=== PATIENT | male | born 1985 | race Caucasian/White ===

== ENCOUNTER 2020-09-16 03:46 | Observation (INO) | payer OTHER ==
[2020-09-16] MEDS ORDERED: methylPREDNISolone NA SUCC 125 MG/2 ML VIAL ONE (04:12)
[2020-09-16] MEDS ORDERED: FAMOTIDINE 20 MG/50 ML IVPB 20 MG/50 ML MG IVPB ONE ×2 (04:12→04:28)
[2020-09-16] MEDS ORDERED: EPINEPHrine/PF 1 MG/1 ML (1:1,000) AMPULE ONE (04:14)
[2020-09-16] MEDS ORDERED: EPINEPHrine 1:1,000 1 MG/1 ML - 30ML VIAL (INJECTION) SQ ONE (04:15)
[2020-09-16 04:28] VITALS: TEMP 98.1; BMI 36.6
[2020-09-16] MEDS ORDERED: methylPREDNISolone NA SUCC 125 MG/2 ML VIAL IVPB ONE (04:28)
[2020-09-16] MEDS ORDERED: RACEPINEPHRINE IH SOL 2.25% 11.25 MG/0.5 ML VIAL IH ONE (08:00)
[2020-09-16] MEDS ORDERED: RACEPINEPHRINE IH SOL 2.25% 11.25 MG/0.5 ML VIAL NEB ONE (08:05)
[2020-09-16 12:08] LABS: BASO % 0.5 % (0-2.0); EOS % 0.1 % (0-4.5); HEMATOCRIT 48.8 % (35.4-49); HEMOGLOBIN 16.5 GM/dL (11.7-16.9); LYMPH % 18.1 % (8-40); MCH 29.7 pg (25.7-33.7); MCHC 33.8 g/dl (32.0-35.9); MONO % 0.9 % (3.8-10.2); NEUT % 80.4 % (42.8-82.8); PLATELET COUNT 278 K/MM3 (134-434); RBC 5.55 M/mm3 (4.00-5.60); RDW 14.1 % (11.9-15.9); WHITE BLOOD COUNT 5.7 K/mm3 (4.0-10.0)
[2020-09-16 12:44] LABS: BLOOD UREA NITROGEN 15.6 mg/dL (7-18); CALCIUM 9.1 mg/dL (8.5-10.1)
[2020-09-16 12:45] LABS: ALBUMIN 3.8 g/dl (3.4-5.0)
[2020-09-16 12:50] LABS: BILIRUBIN,TOTAL 0.5 mg/dL (0.2-1); TOT PROT 7.6 g/dl (6.4-8.2)
[2020-09-16] MEDS ORDERED: diphenhydrAMINE HCL 25 MG CAPSULE (FP) PO PRN (14:44)
[2020-09-16 19:14] VITALS: BP 134/77; PULSE 104
[2020-09-17] MEDS ORDERED: ENOXAPARIN NA (PORCINE) 40 MG/0.4 ML DISP.SYRIN SQ SCH (10:00)
[2020-09-17] MEDS ORDERED: predniSONE 20 MG TABLET (UD) PO SCH (10:00)
== END 2020-09-16 20:19 | disposition home or self-care (01) ==
LOC: JER 03:46 → JERBED 13:32
PROVIDERS: ADMIT Student in an Organized Health Care Education/Training Program; ATTEND Student in an Organized Health Care Education/Training Program
PROC: 3E023GC Introduction of Other Therapeutic Substance into Muscle, Percutaneous Approach (ICD-10-PCS; principal; 2020-09-16)
DX: T78.40XA Allergy, unspecified, initial encounter (principal); R22.0 Localized swelling, mass and lump, head; L40.9 Psoriasis, unspecified; E66.9 Obesity, unspecified; Z68.36 Body mass index [BMI] 36.0-36.9, adult; Z29.9 Encounter for prophylactic measures, unspecified
CPT/HCPCS: 36415; 71046-TC-FY; 80053; 85025; 93005; 93010; 96365; 96372; 96375; 99285-25; C9803; G0378; U0003; U0005

== ENCOUNTER 2021-11-14 08:32 | Emergency (ER) | payer OTHER ==
[2021-11-14 08:38] VITALS: BP 118/80; PULSE 101; TEMP 98.2; BMI 36.6
[2021-11-14] MEDS ORDERED: ACETAMINOPHEN 500 MG TABLET (FP) PO ONE (09:22)
[2021-11-14] MEDS ORDERED: ACETAMINOPHEN 500 MG TABLET (FP) ONE (09:25)
[2021-11-14] MEDS ORDERED: oxyCODONE HCL 5 MG TABLET PO ONE (09:26)
[2021-11-14] MEDS ORDERED: oxyCODONE HCL 5 MG TABLET ONE (09:28)
== END 2021-11-14 10:19 | disposition home or self-care (01) ==
LOC: JER 08:32 → JERFT 08:32
DX: M25.562 Pain in left knee (principal)
CPT/HCPCS: 73560-TC-LT-FY; 99283-25

== ENCOUNTER 2022-06-02 14:49 | Observation (INO) | payer OTHER ==
[2022-06-02] MEDS ORDERED: morphine CARPU-JECT 4 MG/1 ML DISP.SYRIN IVPUSH ONE ×2 (16:06→20:57)
[2022-06-02] MEDS ORDERED: SODIUM CHLORIDE 0.9% 500 ML INFUS.BAG IV ONE (16:06)
[2022-06-02] MEDS ORDERED: morphine SULFATE 4 MG/ML VIAL ONE ×2 (16:32→21:36)
[2022-06-02 17:59] LABS: EPI CELLS 4 /uL (0-25.1); HYALINE CASTS 0 /uL (0-3.1); PH,URINE 5.5 (5.0-8.0); URINE APPEARANCE CLOUDY; URINE BACTERIA 12 /uL (0-1359); URINE BILIRUBIN NEGATIVE (NEGATIVE); URINE COLOR YELLOW; URINE GLUCOSE (UA) NEGATIVE (NEGATIVE); URINE KETONE NEGATIVE (NEGATIVE); URINE LEUK ESTERASE NEGATIVE (NEGATIVE); URINE NITRITE NEGATIVE (NEGATIVE); URINE PROTEIN TRACE (NEGATIVE); URINE RBC 1106 /uL (0-23.9); URINE UROBILINOGEN 0.2 mg/dL (0.2-1.0); URINE WBC 16 /uL (0-25.8)
[2022-06-02 18:10] LABS: BASO % 0.3 % (0-2.0); EOS % 2.8 % (0-4.5); HEMATOCRIT 55.5 % (35.4-49); HEMOGLOBIN 18.4 GM/dL (11.7-16.9); LYMPH % 25.2 % (8-40); MCHC 33.1 g/dl (32.0-35.9); MEAN CELL VOLUME 87.7 fl (80-96); MEAN PLT VOLUME 8.2 fl (7.5-11.1); MONO % 14.1 % (3.8-10.2); NEUT % 57.6 % (42.8-82.8); PLATELET COUNT 320 10^3/uL (134-434); RBC 6.33 M/mm3 (4.00-5.60); RDW 14.2 % (11.9-15.9)
[2022-06-02 18:14] LABS: CALCIUM 9.6 mg/dL (8.5-10.1)
[2022-06-02 18:15] LABS: ALBUMIN 4.3 g/dl (3.4-5.0); BLOOD UREA NITROGEN 15.1 mg/dL (7-18)
[2022-06-02 18:18] LABS: CREATININE 1.3 mg/dL (0.55-1.3)
[2022-06-02] MEDS ORDERED: morphine CARPU-JECT 2 MG/1 ML DISP.SYRIN IVPUSH ONE (18:19)
[2022-06-02 18:20] LABS: BILIRUBIN,TOTAL 0.7 mg/dL (0.2-1); TOT PROT 8.2 g/dl (6.4-8.2)
[2022-06-02] MEDS ORDERED: ACETAMINOPHEN 1000 MG/100 ML BAG IVPB ONE (18:26)
[2022-06-02] MEDS ORDERED: ACETAMINOPHEN INJECTION 100 ML IVPB ONE (18:35)
[2022-06-02] MEDS ORDERED: TAMSULOSIN HCL 0.4 MG CAP PO ONE (20:49)
[2022-06-02] MEDS ORDERED: morphine SULFATE 4 MG/ML VIAL IVPUSH PRN (21:30)
[2022-06-02] MEDS ORDERED: TAMSULOSIN HCL 0.4 MG CAP ONE (21:36)
[2022-06-02] MEDS: SODIUM CHLORIDE 1,000 ML IV SCH (22:51)
[2022-06-02 23:12] LABS: INR 1.05 (0.83-1.09); PROTHROMBIN TIME (PATIENT) 12.1 SEC (9.7-13.0)
[2022-06-02 23:15] LABS: ACTIVATED PTT 28.2 SECONDS (25.2-36.5)
[2022-06-02 23:39] LABS: ALBUMIN 3.8 g/dl (3.4-5.0)
[2022-06-02 23:40] LABS: BLOOD UREA NITROGEN 13.1 mg/dL (7-18)
[2022-06-02 23:43] LABS: CREATININE 1.1 mg/dL (0.55-1.3)
[2022-06-02 23:44] LABS: BILIRUBIN,TOTAL 0.7 mg/dL (0.2-1); TOT PROT 7.5 g/dl (6.4-8.2)
[2022-06-03] MEDS: ACETAMINOPHEN 1000 MG/100 ML BAG IVPB SCH ×2 (01:34→06:13)
[2022-06-03] MEDS ORDERED: ACETAMINOPHEN INJECTION 100 ML IVPB ONE ×2 (01:40→06:39)
[2022-06-03] MEDS ORDERED: TAMSULOSIN HCL 0.4 MG CAP ONE (07:24)
[2022-06-03] MEDS ORDERED: ACETAMINOPHEN 325 MG TABLET (FP) PO PRN ×2 (07:26→08:00)
[2022-06-03] MEDS ORDERED: KETOROLAC TROMETHAMINE 15 MG/ML VIAL IVPUSH PRN (07:27)
[2022-06-03] MEDS: TAMSULOSIN HCL 0.4 MG CAP PO SCH (07:36)
[2022-06-03 08:22] LABS: BASO % 0.5 % (0-2.0); EOS % 3.2 % (0-4.5); HEMATOCRIT 49.3 % (35.4-49); HEMOGLOBIN 16.2 GM/dL (11.7-16.9); LYMPH % 32.7 % (8-40); MCH 28.8 pg (25.7-33.7); MCHC 32.8 g/dl (32.0-35.9); MEAN CELL VOLUME 87.6 fl (80-96); MEAN PLT VOLUME 7.9 fl (7.5-11.1); NEUT % 51.6 % (42.8-82.8); PLATELET COUNT 273 10^3/uL (134-434); RBC 5.62 M/mm3 (4.00-5.60); RDW 13.9 % (11.9-15.9); WHITE BLOOD COUNT 6.3 K/mm3 (4.0-10.0)
[2022-06-03 08:55] LABS: ALBUMIN 3.4 g/dl (3.4-5.0); CALCIUM 8.9 mg/dL (8.5-10.1); MAGNESIUM 2.2 mg/dL (1.8-2.4)
[2022-06-03 08:56] LABS: BLOOD UREA NITROGEN 12.3 mg/dL (7-18)
[2022-06-03 08:58] LABS: CREATININE 1.1 mg/dL (0.55-1.3)
[2022-06-03 09:00] LABS: BILIRUBIN,TOTAL 0.8 mg/dL (0.2-1); TOT PROT 6.8 g/dl (6.4-8.2)
[2022-06-03] MEDS ORDERED: ENOXAPARIN NA (PORCINE) 40 MG/0.4 ML DISP.SYRIN SQ SCH (10:00)
[2022-06-03] MEDS: SODIUM CHLORIDE 1,000 ML IV SCH (11:25)
[2022-06-03 16:07] VITALS: BMI 37.3
[2022-06-03 22:03] VITALS: RESP 20
[2022-06-04] MEDS: TAMSULOSIN HCL 0.4 MG CAP PO SCH (09:30)
[2022-06-04] MEDS ORDERED: CEFUROXIME AXETIL 500 MG TABLET PO SCH (12:00)
[2022-06-04 14:52] VITALS: BP 126/73; PULSE 89; TEMP 98.2
[2022-06-04] MEDS ORDERED: AMOX TR/POT CLAV 500MG/125MG TABLETS (FP) PO SCH (17:30)
== END 2022-06-04 15:58 | disposition home or self-care (01) ==
LOC: JER 14:49 → JERBED 19:16 → J8W 06-03 08:53
PROVIDERS: ADMIT Internal Medicine; ATTEND Nurse Practitioner Family
PROC: 3E033NZ Introduction of Analgesics, Hypnotics, Sedatives into Peripheral Vein, Percutaneous Approach (ICD-10-PCS; principal; 2022-06-02)
PROC: 3E0337Z Introduction of Electrolytic and Water Balance Substance into Peripheral Vein, Percutaneous Approach (ICD-10-PCS; 2022-06-02)
DX: N20.0 Calculus of kidney (principal); I10 Essential (primary) hypertension; M54.50 Low back pain, unspecified; E66.8 Other obesity; Z68.37 Body mass index [BMI] 37.0-37.9, adult; D75.1 Secondary polycythemia; G89.29 Other chronic pain; Z88.8 Allergy status to other drugs, medicaments and biological substances
CPT/HCPCS: 0241U-QW; 36415; 74176-TC; 76775-TC; 80053; 80061; 81003; 83735; 84100; 85025; 85610; 85730; 87086; 93005; 93010; 96361; 96374; 96375; 96376; 99285-25; G0378

== ENCOUNTER 2022-06-10 22:57 | Inpatient (IN) | payer OTHER ==
[2022-06-11] MEDS ORDERED: ONDANSETRON 4 MG/2 ML VIAL IVPB ONE (00:12)
[2022-06-11] MEDS ORDERED: ACETAMINOPHEN 1000 MG/100 ML BAG IVPB ONE (00:12)
[2022-06-11 00:21] LABS: EPI CELLS 1 /uL (0-25.1); HYALINE CASTS 1 /uL (0-3.1); PH,URINE 5.5 (5.0-8.0); URINE APPEARANCE CLOUDY; URINE BACTERIA 1 /uL (0-1359); URINE BILIRUBIN NEGATIVE (NEGATIVE); URINE COLOR YELLOW; URINE GLUCOSE (UA) NEGATIVE (NEGATIVE); URINE KETONE NEGATIVE (NEGATIVE); URINE LEUK ESTERASE NEGATIVE (NEGATIVE); URINE NITRITE NEGATIVE (NEGATIVE); URINE PROTEIN NEGATIVE (NEGATIVE); URINE RBC 167 /uL (0-23.9); URINE UROBILINOGEN 0.2 mg/dL (0.2-1.0); URINE WBC 16 /uL (0-25.8)
[2022-06-11] MEDS ORDERED: ACETAMINOPHEN INJECTION 100 ML IVPB ONE (00:30)
[2022-06-11] MEDS ORDERED: ONDANSETRON 4 MG/2 ML VIAL ONE (00:30)
[2022-06-11 01:08] LABS: BASO % 0.8 % (0-2.0); EOS % 1.7 % (0-4.5); HEMATOCRIT 52.8 % (35.4-49); HEMOGLOBIN 17.4 GM/dL (11.7-16.9); LYMPH % 24.6 % (8-40); MCH 28.8 pg (25.7-33.7); MCHC 32.9 g/dl (32.0-35.9); MEAN CELL VOLUME 87.5 fl (80-96); MEAN PLT VOLUME 7.7 fl (7.5-11.1); MONO % 13.1 % (3.8-10.2); NEUT % 59.8 % (42.8-82.8); PLATELET COUNT 310 10^3/uL (134-434); RBC 6.04 M/mm3 (4.00-5.60); RDW 13.8 % (11.9-15.9); WHITE BLOOD COUNT 8.3 K/mm3 (4.0-10.0)
[2022-06-11 01:13] LABS: INR 1.01 (0.83-1.09); PROTHROMBIN TIME (PATIENT) 11.6 SEC (9.7-13.0)
[2022-06-11 01:16] LABS: ACTIVATED PTT 31.1 SECONDS (25.2-36.5)
[2022-06-11 01:25] LABS: CALCIUM 9.5 mg/dL (8.5-10.1)
[2022-06-11 01:26] LABS: BLOOD UREA NITROGEN 15.8 mg/dL (7-18)
[2022-06-11 01:28] LABS: CREATININE 1.4 mg/dL (0.55-1.3)
[2022-06-11 01:29] LABS: BILIRUBIN,TOTAL 0.5 mg/dL (0.2-1); TOT PROT 7.8 g/dl (6.4-8.2)
[2022-06-11] MEDS ORDERED: SODIUM CHLORIDE 0.9% 500 ML INFUS.BAG IV ONE (01:37)
[2022-06-11 06:03] LABS: BLOOD UREA NITROGEN 16.6 mg/dL (7-18); CALCIUM 9.2 mg/dL (8.5-10.1)
[2022-06-11 06:07] LABS: CREATININE 1.5 mg/dL (0.55-1.3)
[2022-06-11] MEDS: morphine SULFATE 4 MG/ML VIAL IVPUSH ONE ×2 (06:47→06:51)
[2022-06-11] MEDS ORDERED: SODIUM CHLORIDE 1,000 ML IV STA (12:14)
[2022-06-11 12:36] VITALS: BMI 36.9
[2022-06-11] MEDS ORDERED: ACETAMINOPHEN 325 MG TABLET (FP) PO PRN (15:32)
[2022-06-11] MEDS ORDERED: ONDANSETRON 4 MG TABLET PO PRN (15:34)
[2022-06-11] MEDS: SODIUM CHLORIDE 1,000 ML IV SCH (16:12)
[2022-06-11 17:20] LABS: CALCIUM 8.9 mg/dL (8.5-10.1)
[2022-06-11 17:22] LABS: BLOOD UREA NITROGEN 16.7 mg/dL (7-18)
[2022-06-11 17:25] LABS: CREATININE 1.3 mg/dL (0.55-1.3)
[2022-06-11] MEDS: TAMSULOSIN HCL 0.4 MG CAP PO SCH (22:25)
[2022-06-12] MEDS: SODIUM CHLORIDE 1,000 ML IV SCH (00:46)
[2022-06-12] MEDS: TAMSULOSIN HCL 0.4 MG CAP PO SCH (08:50)
[2022-06-12] MEDS ORDERED: HYDROmorphone HCl 2 MG/ML VIAL IM PRN (13:45)
[2022-06-13] MEDS: TAMSULOSIN HCL 0.4 MG CAP PO SCH (08:44)
[2022-06-13 10:52] LABS: ALBUMIN 3.6 g/dl (3.4-5.0); CALCIUM 9.7 mg/dL (8.5-10.1)
[2022-06-13 10:53] LABS: BLOOD UREA NITROGEN 9.9 mg/dL (7-18); MAGNESIUM 2.2 mg/dL (1.8-2.4)
[2022-06-13 10:56] LABS: BILIRUBIN,TOTAL 0.5 mg/dL (0.2-1); TOT PROT 7.4 g/dl (6.4-8.2)
[2022-06-13] MEDS: SODIUM CHLORIDE 1,000 ML IV SCH (16:48)
[2022-06-13] MEDS ORDERED: HYDROmorphone HCl 2 MG/ML VIAL IVPUSH PRN (17:20)
[2022-06-14] MEDS: LACTATED RINGERS SOLUTION 1,000 ML/1,000 ML INFUS.BAG IV SCH ×2 (00:48→21:00)
[2022-06-14] MEDS: TAMSULOSIN HCL 0.4 MG CAP PO SCH (09:19)
[2022-06-14 09:55] LABS: BASO % 1.1 % (0-2.0); EOS % 6.5 % (0-4.5); HEMATOCRIT 48.2 % (35.4-49); HEMOGLOBIN 16.3 GM/dL (11.7-16.9); LYMPH % 44.6 % (8-40); MCH 29.6 pg (25.7-33.7); MCHC 33.8 g/dl (32.0-35.9); MEAN CELL VOLUME 87.6 fl (80-96); MEAN PLT VOLUME 7.9 fl (7.5-11.1); MONO % 11.8 % (3.8-10.2); PLATELET COUNT 300 10^3/uL (134-434); RDW 13.4 % (11.9-15.9); WHITE BLOOD COUNT 5.7 K/mm3 (4.0-10.0)
[2022-06-14 10:42] LABS: CALCIUM 9.5 mg/dL (8.5-10.1)
[2022-06-14 10:43] LABS: ALBUMIN 3.4 g/dl (3.4-5.0); BLOOD UREA NITROGEN 12.5 mg/dL (7-18); MAGNESIUM 2.2 mg/dL (1.8-2.4)
[2022-06-14] MEDS ORDERED: ONDANSETRON 4 MG/2 ML VIAL IVPUSH PRN (10:46)
[2022-06-14] MEDS ORDERED: PROMETHAZINE HCL 25 MG/1 ML VIAL IVPB PRN (10:46)
[2022-06-14] MEDS ORDERED: oxyCODONE HCL 5 MG TABLET PO PRN ×2 (10:46)
[2022-06-14 10:47] LABS: PHOSPHOROUS 4.5 mg/dL (2.5-4.9)
[2022-06-14 10:49] LABS: BILIRUBIN,TOTAL 0.4 mg/dL (0.2-1)
[2022-06-14] MEDS ORDERED: ONDANSETRON 4 MG/2 ML VIAL ONE (10:59)
[2022-06-14] MEDS ORDERED: DEXAMETHASONE SOD PHOSPHATE 4 MG/1 ML VIAL ONE (10:59)
[2022-06-14] MEDS ORDERED: LIDOCAINE HCL/PF 2% SDV 5ML VIAL ONE (10:59)
[2022-06-14] MEDS ORDERED: PROPOFOL 60 ML ONE (10:59)
[2022-06-14] MEDS ORDERED: ceFAZolin SODIUM 1 GM VIAL ONE (11:22)
[2022-06-14] MEDS ORDERED: ceFAZolin SODIUM 1 GM VIAL IVPB ONE (11:23)
[2022-06-14] MEDS ORDERED: IOHEXOL 300 MG/ML INFUS..BTL IV ONE ×2 (11:34)
[2022-06-14] MEDS: HYDROmorphone HCl 2 MG/ML VIAL IVPUSH PRN ×2 (15:05→21:01)
[2022-06-14] MEDS: LACTATED RINGERS SOLUTION 1,000 ML IV SCH (15:16)
[2022-06-14] MEDS: CEPHALEXIN MONOHYDRATE 500 MG CAPSULE (UD) PO SCH (21:06)
[2022-06-15] MEDS: HYDROmorphone HCl 2 MG/ML VIAL IVPUSH PRN (05:16)
[2022-06-15] MEDS: LACTATED RINGERS SOLUTION 1,000 ML IV SCH ×2 (05:22→13:39)
[2022-06-15] MEDS: CEPHALEXIN MONOHYDRATE 500 MG CAPSULE (UD) PO SCH ×2 (05:22→13:39)
[2022-06-15] MEDS ORDERED: HYDROmorphone HCl 2 MG/ML VIAL IVPB PRN (07:28)
[2022-06-15] MEDS: TAMSULOSIN HCL 0.4 MG CAP PO SCH (09:05)
[2022-06-15 10:38] LABS: BASO % 0.2 % (0-2.0); EOS % 0.1 % (0-4.5); HEMATOCRIT 47.2 % (35.4-49); HEMOGLOBIN 15.7 GM/dL (11.7-16.9); LYMPH % 19.5 % (8-40); MCHC 33.2 g/dl (32.0-35.9); MEAN CELL VOLUME 87.4 fl (80-96); MEAN PLT VOLUME 8.2 fl (7.5-11.1); MONO % 10.1 % (3.8-10.2); NEUT % 70.1 % (42.8-82.8); PLATELET COUNT 313 10^3/uL (134-434); RDW 13.8 % (11.9-15.9)
[2022-06-15 10:56] LABS: ALBUMIN 3.6 g/dl (3.4-5.0); BLOOD UREA NITROGEN 13.5 mg/dL (7-18); CALCIUM 9.2 mg/dL (8.5-10.1)
[2022-06-15 10:59] LABS: CREATININE 1.3 mg/dL (0.55-1.3); PHOSPHOROUS 4.4 mg/dL (2.5-4.9)
[2022-06-15 11:00] LABS: TOT PROT 7.2 g/dl (6.4-8.2)
[2022-06-15 11:01] LABS: BILIRUBIN,TOTAL 0.6 mg/dL (0.2-1)
[2022-06-15] MEDS ORDERED: DOCUSATE SODIUM 100 MG CAPSULE (FP) PO ONE (12:43)
[2022-06-15] MEDS ORDERED: oxyCODONE HCL 5 MG TABLET PO PRN (14:22)
[2022-06-15] MEDS: POLYETHYLENE GLYCOL (HEALTHYLAX) 3350 17 GM PACKET PO SCH ×2 (15:22→21:26)
[2022-06-15] MEDS ORDERED: ACETAMINOPHEN 1000 MG/100 ML BAG IVPB PRN (15:55)
[2022-06-15] MEDS ORDERED: ACETAMINOPHEN 500 MG TABLET (FP) PO PRN (17:34)
[2022-06-15] MEDS: HEPARIN NA (PORCINE) 5,000 UNITS/ML 1ML VIAL SQ SCH (21:26)
[2022-06-16] MEDS ORDERED: MINERAL OIL ENEMA 133 ML ENEMA RC ONE (01:50)
[2022-06-16] MEDS ORDERED: SODIUM PHOSPHATE/NA BIPHOS 133 ML ENEMA RC ONE (02:07)
[2022-06-16] MEDS: SODIUM PHOSPHATE/NA BIPHOS 133 ML ENEMA PR ONE ×2 (02:08→02:11)
[2022-06-16] MEDS: oxyCODONE HCL 5 MG TABLET PO PRN ×2 (04:13→07:20)
[2022-06-16] MEDS: HEPARIN NA (PORCINE) 5,000 UNITS/ML 1ML VIAL SQ SCH ×3 (07:14→21:42)
[2022-06-16] MEDS ORDERED: HYDROmorphone HCl 2 MG/ML VIAL IVPUSH ONE (07:26)
[2022-06-16] MEDS: PHENAZOPYRIDINE HCL 100 MG TABLET (FP) PO SCH (09:42)
[2022-06-16] MEDS: POLYETHYLENE GLYCOL (HEALTHYLAX) 3350 17 GM PACKET PO SCH ×2 (09:42→21:43)
[2022-06-16] MEDS: TAMSULOSIN HCL 0.4 MG CAP PO SCH (09:42)
[2022-06-16 10:48] LABS: HEMATOCRIT 45.5 % (35.4-49); HEMOGLOBIN 15.3 GM/dL (11.7-16.9); MCH 29.2 pg (25.7-33.7); MCHC 33.6 g/dl (32.0-35.9); MEAN CELL VOLUME 86.8 fl (80-96); MEAN PLT VOLUME 8.2 fl (7.5-11.1); PLATELET COUNT 267 10^3/uL (134-434); RBC 5.25 M/mm3 (4.00-5.60); RDW 13.5 % (11.9-15.9); WHITE BLOOD COUNT 9.7 K/mm3 (4.0-10.0)
[2022-06-16 11:16] LABS: CALCIUM 9.1 mg/dL (8.5-10.1)
[2022-06-16] MEDS ORDERED: morphine SULFATE 4 MG/ML VIAL IVPUSH PRN (12:58)
[2022-06-16] MEDS ORDERED: oxyCODONE HCL 5 MG TABLET PO PRN (12:59)
[2022-06-16] MEDS ORDERED: SODIUM CHLORIDE 1,000 ML IV SCH (13:00)
[2022-06-17] MEDS: HEPARIN NA (PORCINE) 5,000 UNITS/ML 1ML VIAL SQ SCH ×3 (06:43→22:26)
[2022-06-17] MEDS: TAMSULOSIN HCL 0.4 MG CAP PO SCH (08:20)
[2022-06-17] MEDS: SODIUM CHLORIDE 1,000 ML IV SCH ×2 (09:06→19:59)
[2022-06-17] MEDS: PIPERACILLIN/TAZOB 4.5 GM 4.5 GM in DEXTROSE 5%-WATER 100 ML IVPB SCH ×3 (09:07→22:23)
[2022-06-17] MEDS: POLYETHYLENE GLYCOL (HEALTHYLAX) 3350 17 GM PACKET PO SCH ×2 (09:07→22:26)
[2022-06-17] MEDS: PHENAZOPYRIDINE HCL 100 MG TABLET (FP) PO SCH (09:15)
[2022-06-17 10:34] LABS: CALCIUM 8.9 mg/dL (8.5-10.1)
[2022-06-17 10:35] LABS: BLOOD UREA NITROGEN 11.1 mg/dL (7-18); HEMATOCRIT 44.8 % (35.4-49); HEMOGLOBIN 15.1 GM/dL (11.7-16.9); MCH 29.3 pg (25.7-33.7); MCHC 33.7 g/dl (32.0-35.9); MEAN CELL VOLUME 87.1 fl (80-96); MEAN PLT VOLUME 8.5 fl (7.5-11.1); PLATELET COUNT 258 10^3/uL (134-434); RBC 5.14 M/mm3 (4.00-5.60); RDW 13.9 % (11.9-15.9); WHITE BLOOD COUNT 9.9 K/mm3 (4.0-10.0)
[2022-06-17 10:38] LABS: CREATININE 1.2 mg/dL (0.55-1.3)
[2022-06-18] MEDS: PIPERACILLIN/TAZOB 4.5 GM 4.5 GM in DEXTROSE 5%-WATER 100 ML IVPB SCH ×2 (02:55→09:32)
[2022-06-18] MEDS: HEPARIN NA (PORCINE) 5,000 UNITS/ML 1ML VIAL SQ SCH ×3 (05:35→21:30)
[2022-06-18] MEDS: SODIUM CHLORIDE 1,000 ML IV SCH ×2 (09:33→18:01)
[2022-06-18] MEDS: TAMSULOSIN HCL 0.4 MG CAP PO SCH (09:33)
[2022-06-18] MEDS: PHENAZOPYRIDINE HCL 100 MG TABLET (FP) PO SCH (09:34)
[2022-06-18] MEDS: POLYETHYLENE GLYCOL (HEALTHYLAX) 3350 17 GM PACKET PO SCH ×2 (09:34→21:26)
[2022-06-18 13:36] LABS: HEMATOCRIT 42.9 % (35.4-49); HEMOGLOBIN 14.4 GM/dL (11.7-16.9); MCH 29.3 pg (25.7-33.7); MCHC 33.6 g/dl (32.0-35.9); MEAN CELL VOLUME 87.2 fl (80-96); MEAN PLT VOLUME 8.5 fl (7.5-11.1); PLATELET COUNT 268 10^3/uL (134-434); RBC 4.91 M/mm3 (4.00-5.60); RDW 13.8 % (11.9-15.9); WHITE BLOOD COUNT 5.9 K/mm3 (4.0-10.0)
[2022-06-18 13:58] LABS: CALCIUM 8.7 mg/dL (8.5-10.1)
[2022-06-18 14:02] LABS: CREATININE 1.1 mg/dL (0.55-1.3)
[2022-06-18] MEDS: AMOX TR/POT CLAV 875MG/125MG TABLETS (FP) PO SCH (18:01)
[2022-06-19] MEDS: HEPARIN NA (PORCINE) 5,000 UNITS/ML 1ML VIAL SQ SCH ×2 (06:55→13:30)
[2022-06-19] MEDS: TAMSULOSIN HCL 0.4 MG CAP PO SCH (08:40)
[2022-06-19] MEDS: AMOX TR/POT CLAV 875MG/125MG TABLETS (FP) PO SCH (08:40)
[2022-06-19] MEDS: POLYETHYLENE GLYCOL (HEALTHYLAX) 3350 17 GM PACKET PO SCH (09:50)
[2022-06-19] MEDS: PHENAZOPYRIDINE HCL 100 MG TABLET (FP) PO SCH (09:51)
[2022-06-19 10:42] LABS: HEMATOCRIT 44.3 % (35.4-49); HEMOGLOBIN 15.2 GM/dL (11.7-16.9); MCH 29.7 pg (25.7-33.7); MCHC 34.3 g/dl (32.0-35.9); MEAN CELL VOLUME 86.6 fl (80-96); PLATELET COUNT 326 10^3/uL (134-434); RBC 5.12 M/mm3 (4.00-5.60); RDW 13.6 % (11.9-15.9); WHITE BLOOD COUNT 6.1 K/mm3 (4.0-10.0)
[2022-06-19 11:14] LABS: CALCIUM 9.2 mg/dL (8.5-10.1)
[2022-06-19 11:18] LABS: CREATININE 0.9 mg/dL (0.55-1.3)
[2022-06-19 15:49] VITALS: BP 128/88; PULSE 78; RESP 18; TEMP 99.2
[2022-07-01 12:09] LABS: CA OXALATE MONOHYDR. 80 % (.); SIZE 2x2 mm (.); SOURCE Ureter (.); WEIGHT 40 mg (.)
== END 2022-06-19 17:16 | disposition home or self-care (01) | DRG 446 ==
LOC: JER 22:57 → SUATTDRO 06-11 06:14 → JERBED 06-11 06:14 → JASUSAT 06-11 06:14 → UNDOADMOB 06-11 06:14 → JERBED 06-11 12:14 → J5S 06-11 12:14 → J8W 06-13 01:59 → J5S 06-13 12:59 → J8W 06-13 12:59 → JASUSAT 06-13 12:59 → J8W 06-15 17:32
PROVIDERS: ADMIT Internal Medicine; ATTEND Internal Medicine
PROC: 0TC78ZZ Extirpation of Matter from Left Ureter, Via Natural or Artificial Opening Endoscopic (ICD-10-PCS; principal; 2022-06-14 10:30)
PROC: 0T778DZ Dilation of Left Ureter with Intraluminal Device, Via Natural or Artificial Opening Endoscopic (ICD-10-PCS; 2022-06-14 10:30)
PROC: BT1FYZZ Fluoroscopy of Left Kidney, Ureter and Bladder using Other Contrast (ICD-10-PCS; 2022-06-14 10:30)
DX: N13.2 Hydronephrosis with renal and ureteral calculous obstruction (principal); N17.9 Acute kidney failure, unspecified; N99.71 Accidental puncture and laceration of a genitourinary system organ or structure during a genitourinary system procedure; K91.89 Other postprocedural complications and disorders of digestive system; K56.7 Ileus, unspecified; Y83.9 Surgical procedure, unspecified as the cause of abnormal reaction of the patient, or of later complication, without mention of misadventure at the time of the procedure
CPT/HCPCS: 0241U-QW; 36415; 74018-TC-FY; 74178-TC; 76000-TC-FY; 76775-TC; 76856-TC; 80048; 80053; 81003; 82360; 83036; 83690; 83735; 84100; 85025; 85027; 85610; 85730; 86850; 86900; 86901; 87040; 87086; 88108; 88300-TC; 94010; 94760; 99285-25; C1758; C2617; J1644

== ENCOUNTER 2022-08-10 20:00 | Inpatient (IN) | payer OTHER ==
[2022-08-10] MEDS ORDERED: LACTATED RINGERS SOLUTION 1000 ML INFUS.BAG IV ONE (20:50)
[2022-08-10] MEDS ORDERED: ACETAMINOPHEN 1000 MG/100 ML BAG IVPB ONE (21:21)
[2022-08-10] MEDS ORDERED: ACETAMINOPHEN INJECTION 100 ML IVPB ONE (21:26)
[2022-08-10 21:38] LABS: BASO % 0.3 % (0-2.0); EOS % 0.4 % (0-4.5); HEMOGLOBIN 15.2 GM/dL (11.7-16.9); LYMPH % 9.9 % (8-40); MCH 28.8 pg (25.7-33.7); MCHC 33.7 g/dl (32.0-35.9); MEAN CELL VOLUME 85.5 fl (80-96); MEAN PLT VOLUME 7.4 fl (7.5-11.1); MONO % 11.9 % (3.8-10.2); NEUT % 77.5 % (42.8-82.8); PLATELET COUNT 268 10^3/uL (134-434); RBC 5.26 M/mm3 (4.00-5.60); RDW 14.1 % (11.9-15.9); WHITE BLOOD COUNT 12.7 K/mm3 (4.0-10.0)
[2022-08-10 21:41] LABS: EPI CELLS 8 /uL (0-25.1); HYALINE CASTS 1 /uL (0-3.1); PH,URINE 5.5 (5.0-8.0); URINE APPEARANCE CLEAR; URINE BACTERIA 6 /uL (0-1359); URINE BILIRUBIN NEGATIVE (NEGATIVE); URINE COLOR YELLOW; URINE GLUCOSE (UA) NEGATIVE (NEGATIVE); URINE KETONE NEGATIVE (NEGATIVE); URINE LEUK ESTERASE TRACE (NEGATIVE); URINE NITRITE NEGATIVE (NEGATIVE); URINE PROTEIN 2+ (NEGATIVE); URINE RBC 537 /uL (0-23.9); URINE UROBILINOGEN 0.2 mg/dL (0.2-1.0); URINE WBC 35 /uL (0-25.8)
[2022-08-10 22:13] LABS: ALBUMIN 3.6 g/dl (3.4-5.0); BLOOD UREA NITROGEN 10.2 mg/dL (7-18); CALCIUM 8.8 mg/dL (8.5-10.1); MAGNESIUM 2.1 mg/dL (1.8-2.4)
[2022-08-10 22:16] LABS: CREATININE 1.1 mg/dL (0.55-1.3)
[2022-08-10 22:18] LABS: TOT PROT 7.4 g/dl (6.4-8.2)
[2022-08-11] MEDS ORDERED: PIPERACILLIN/TAZOB 3.375 GM 3.375 GM in DEXTROSE 5%-WATER - 50 ML IVPB SCH ×3 (03:00→05:11)
[2022-08-11] MEDS ORDERED: CEFTRIAXONE 1,000 MG in DEXTROSE 5%-WATER - 50 ML IVPB ONE (03:19)
[2022-08-11] MEDS ORDERED: SODIUM CHLORIDE 0.9% 500 ML INFUS.BAG IV ONE (03:21)
[2022-08-11] MEDS ORDERED: CEFTRIAXONE 1 GM/50 ML BAG ONE (03:33)
[2022-08-11] MEDS ORDERED: ACETAMINOPHEN 500 MG TABLET (FP) PO PRN (04:11)
[2022-08-11] MEDS ORDERED: ACETAMINOPHEN 1000 MG/100 ML BAG IVPB PRN ×2 (04:16→04:47)
[2022-08-11] MEDS ORDERED: LACTATED RINGERS SOLUTION 1,000 ML/1,000 ML INFUS.BAG IV SCH (04:30)
[2022-08-11] MEDS ORDERED: SODIUM CHLORIDE 1,000 ML IV STA (04:46)
[2022-08-11] MEDS: SODIUM CHLORIDE 1,000 ML IV SCH ×2 (05:32→13:24)
[2022-08-11] MEDS ORDERED: BENZOCAINE/MENTH/CETYLPYRD CL 1 EACH LOZENGE MM PRN (05:47)
[2022-08-11 06:08] LABS: ALBUMIN 3.4 g/dl (3.4-5.0); BLOOD UREA NITROGEN 9.5 mg/dL (7-18); CALCIUM 8.7 mg/dL (8.5-10.1); MAGNESIUM 1.8 mg/dL (1.8-2.4)
[2022-08-11 06:11] LABS: PHOSPHOROUS 3.1 mg/dL (2.5-4.9)
[2022-08-11 06:12] LABS: CREATININE 1.1 mg/dL (0.55-1.3)
[2022-08-11 06:13] LABS: BILIRUBIN,TOTAL 0.9 mg/dL (0.2-1); TOT PROT 7.2 g/dl (6.4-8.2)
[2022-08-11 06:15] LABS: LACTIC ACID 2.3 mmol/L (0.4-2.0)
[2022-08-11] MEDS ORDERED: LACTATED RINGERS SOLUTION 1000 ML INFUS.BAG IV ONE (06:23)
[2022-08-11] MEDS ORDERED: ACETAMINOPHEN 1000 MG/100 ML BAG IVPB ONE (06:23)
[2022-08-11 06:25] LABS: BASO % 0.3 % (0-2.0); EOS % 0.5 % (0-4.5); HEMATOCRIT 42.7 % (35.4-49); HEMOGLOBIN 14.4 GM/dL (11.7-16.9); LYMPH % 12.8 % (8-40); MCHC 33.8 g/dl (32.0-35.9); MEAN CELL VOLUME 85.6 fl (80-96); MONO % 12.6 % (3.8-10.2); NEUT % 73.8 % (42.8-82.8); PLATELET COUNT 264 10^3/uL (134-434); RBC 4.99 M/mm3 (4.00-5.60); WHITE BLOOD COUNT 12.9 K/mm3 (4.0-10.0)
[2022-08-11] MEDS ORDERED: ACETAMINOPHEN INJECTION 100 ML IVPB ONE (06:26)
[2022-08-11] MEDS: TAMSULOSIN HCL 0.4 MG CAP PO SCH (08:42)
[2022-08-11] MEDS ORDERED: CEFTRIAXONE 1,000 MG in DEXTROSE 5%-WATER - 50 ML IVPB SCH (10:00)
[2022-08-11] MEDS ORDERED: ENOXAPARIN NA (PORCINE) 40 MG/0.4 ML DISP.SYRIN SQ SCH (10:00)
[2022-08-11 13:21] VITALS: BMI 38.0
[2022-08-11] MEDS: PIPERACILLIN/TAZOB 3.375 GM 3.375 GM in DEXTROSE 5%-WATER - 50 ML IVPB SCH (19:02)
[2022-08-12] MEDS: PIPERACILLIN/TAZOB 3.375 GM 3.375 GM in DEXTROSE 5%-WATER - 50 ML IVPB SCH ×3 (02:39→17:43)
[2022-08-12] MEDS ORDERED: PIPERACILLIN/TAZOB 3.375 GM 3.375 GM in DEXTROSE 5%-WATER - 50 ML IVPB SCH (03:00)
[2022-08-12 08:59] LABS: BASO % 0.6 % (0-2.0); EOS % 3.1 % (0-4.5); HEMATOCRIT 41.6 % (35.4-49); HEMOGLOBIN 14.2 GM/dL (11.7-16.9); LYMPH % 14.6 % (8-40); MCH 29.1 pg (25.7-33.7); MCHC 34.2 g/dl (32.0-35.9); MEAN CELL VOLUME 85.2 fl (80-96); MEAN PLT VOLUME 8.3 fl (7.5-11.1); MONO % 12.3 % (3.8-10.2); NEUT % 69.4 % (42.8-82.8); PLATELET COUNT 252 10^3/uL (134-434); RBC 4.88 M/mm3 (4.00-5.60); RDW 13.8 % (11.9-15.9); WHITE BLOOD COUNT 11.8 K/mm3 (4.0-10.0)
[2022-08-12] MEDS: TAMSULOSIN HCL 0.4 MG CAP PO SCH (09:26)
[2022-08-12] MEDS: SODIUM CHLORIDE 1,000 ML IV SCH (09:27)
[2022-08-12 09:42] LABS: ALBUMIN 3.2 g/dl (3.4-5.0); BLOOD UREA NITROGEN 9.2 mg/dL (7-18); CALCIUM 8.8 mg/dL (8.5-10.1); CREATININE 0.9 mg/dL (0.55-1.3)
[2022-08-12 09:43] LABS: MAGNESIUM 2.1 mg/dL (1.8-2.4)
[2022-08-12 09:45] LABS: BILIRUBIN,TOTAL 0.5 mg/dL (0.2-1)
[2022-08-13] MEDS: PIPERACILLIN/TAZOB 3.375 GM 3.375 GM in DEXTROSE 5%-WATER - 50 ML IVPB SCH ×2 (02:14→09:45)
[2022-08-13 09:00] LABS: BASO % 0.5 % (0-2.0); EOS % 6.6 % (0-4.5); HEMATOCRIT 42.9 % (35.4-49); HEMOGLOBIN 14.8 GM/dL (11.7-16.9); LYMPH % 27.6 % (8-40); MCH 29.3 pg (25.7-33.7); MCHC 34.5 g/dl (32.0-35.9); MEAN CELL VOLUME 84.8 fl (80-96); MEAN PLT VOLUME 7.9 fl (7.5-11.1); MONO % 16.9 % (3.8-10.2); NEUT % 48.4 % (42.8-82.8); PLATELET COUNT 289 10^3/uL (134-434); RBC 5.06 M/mm3 (4.00-5.60); RDW 13.8 % (11.9-15.9); WHITE BLOOD COUNT 7.2 K/mm3 (4.0-10.0)
[2022-08-13 09:15] LABS: ALBUMIN 3.1 g/dl (3.4-5.0); BLOOD UREA NITROGEN 10.2 mg/dL (7-18); CALCIUM 9.2 mg/dL (8.5-10.1); MAGNESIUM 2.4 mg/dL (1.8-2.4)
[2022-08-13 09:18] LABS: CREATININE 0.9 mg/dL (0.55-1.3)
[2022-08-13 09:20] LABS: BILIRUBIN,TOTAL 0.4 mg/dL (0.2-1); TOT PROT 7.3 g/dl (6.4-8.2)
[2022-08-13] MEDS: TAMSULOSIN HCL 0.4 MG CAP PO SCH (09:45)
[2022-08-13 09:50] VITALS: RESP 20
[2022-08-13] MEDS: AMOX TR/POT CLAV 875MG/125MG TABLETS (FP) PO SCH (16:54)
[2022-08-14 05:49] VITALS: BP 137/76; PULSE 77; TEMP 98.1
[2022-08-14] MEDS: TAMSULOSIN HCL 0.4 MG CAP PO SCH (08:40)
[2022-08-14] MEDS: AMOX TR/POT CLAV 875MG/125MG TABLETS (FP) PO SCH (08:40)
[2022-08-14 09:13] LABS: BASO % 0.7 % (0-2.0); EOS % 5.9 % (0-4.5); HEMATOCRIT 45.9 % (35.4-49); HEMOGLOBIN 15.5 GM/dL (11.7-16.9); LYMPH % 36.6 % (8-40); MCH 28.8 pg (25.7-33.7); MCHC 33.8 g/dl (32.0-35.9); MEAN CELL VOLUME 85.4 fl (80-96); MEAN PLT VOLUME 7.8 fl (7.5-11.1); MONO % 15.1 % (3.8-10.2); NEUT % 41.7 % (42.8-82.8); PLATELET COUNT 330 10^3/uL (134-434); RBC 5.37 M/mm3 (4.00-5.60); RDW 13.7 % (11.9-15.9); WHITE BLOOD COUNT 6.2 K/mm3 (4.0-10.0)
[2022-08-14 09:36] LABS: ALBUMIN 3.2 g/dl (3.4-5.0); BLOOD UREA NITROGEN 11.2 mg/dL (7-18); CALCIUM 9.2 mg/dL (8.5-10.1); MAGNESIUM 2.4 mg/dL (1.8-2.4)
[2022-08-14 09:39] LABS: BILIRUBIN,TOTAL 0.4 mg/dL (0.2-1); CREATININE 0.9 mg/dL (0.55-1.3)
[2022-08-14 09:41] LABS: TOT PROT 7.4 g/dl (6.4-8.2)
== END 2022-08-14 14:48 | disposition home or self-care (01) | DRG 720 ==
LOC: JER 20:00 → INTOOBSV 08-11 03:58 → JERBED 08-11 03:58 → OBSVTOIN 08-11 12:48 → INTOOBSV 08-11 12:48 → J8W 08-11 13:21
PROVIDERS: ADMIT Internal Medicine; ATTEND Nurse Practitioner Family
DX: A41.9 Sepsis, unspecified organism (principal); R31.9 Hematuria, unspecified; E66.9 Obesity, unspecified; Z68.37 Body mass index [BMI] 37.0-37.9, adult; J02.0 Streptococcal pharyngitis; E87.20 Acidosis, unspecified; N13.2 Hydronephrosis with renal and ureteral calculous obstruction
CPT/HCPCS: 0241U-QW; 36415; 74177-TC; 80053; 81003; 83605; 83690; 83735; 84100; 85025; 86850; 86900; 86901; 87040; 87070; 87077; 87086; 87651; 93005; 93010; 99285-25; G0378; Q9967